=== PATIENT | male | born 1950 | race Caucasian/White ===

== ENCOUNTER 2016-12-09 16:20 | Emergency (ER) | payer BC ==
[2016-12-09 16:30] VITALS: BP 113/75; PULSE 58; RESP 15; TEMP 97.7; O2SAT 94
[2016-12-09] MEDS ORDERED: TDAP ADULT 0.5 ML INJ (BOOSTRIX) IM ONE (17:35)
--- NOTE | 2016-12-09 17:37 | UCPHY ---
H & P Patient Type: New Chief Complaint Nursing Narrative: laceration to r wrist while working, cut on thread grinder. dsg intact. no bleeding at present Time Seen by Provider: 12/09/16 17:29 HPI/ROS: Chief complaint: Right wrist laceration HPI: 66-year-old male was grinding steel at work when he got hit the ground caught and balanced. Striking his right arm. He sustained a laceration over his right radial wrist with an abrasion approximately. Did bleed quite profusely initially but has since stopped. Does not recall his last tetanus. Is otherwise without complaint. ROS: 10 point Review of Systems is negative except as noted in the HPI. Past medical history: None Medications: None Allergies: None Physical exam: General: Awake, alert, no acute distress Right arm: He has got a 1 cm deep laceration over his right lateral wrist. No active bleeding. He also has a superficial abrasions proximal to this with no active bleeding. There is no bony tenderness. Full range of motion without pain. Sensations intact in the radial, median, ulnar nerve distribution. - Medical/Surgical History Other PMH: denies - Family History Significant Family History: No pertinent family hx - Social History Smoking Status: Never smoked Constitutional: Initial Vital Signs Temperature (C) 36.5 C 12/09/16 16:28 Heart Rate 58 L 12/09/16 16:28 Respiratory Rate 15 12/09/16 16:28 Blood Pressure 113/75 12/09/16 16:28 O2 Sat (%) 94 12/09/16 16:28 O2 Delivery Mode Room Air Allergies/Adverse Reactions: No Known Allergies Allergy (Unverified 12/09/16 16:27) Home Medications: Medication Instructions Recorded Aspirin 81mg (*) 12/09/16 Lipitor 12/09/16 Medical Decision Making Procedures: Procedure: Laceration repair. Verbal consent was obtained from the patient. The 1 cm laceration on the right wrist was anesthetized in the usual fashion. The wound was irrigated, draped and explored to its base with a gloved finger. There were no deep structures involved. No tendon injury was identified. The wound was repaired with 2, 4-0 Ethilon simple interrupted sutures. The wound repair was uncomplicated. The procedure was performed by myself. Departure - Departure Disposition: Home, Routine, Self-Care Clinical Impression: Laceration, Abrasion Condition: Good Instructions: Diphtheria/Acellular Pertussis/Tetanus Booster Vaccine (By injection), Care For Your Stitches (ED), Laceration (ED), Abrasion (ED) Additional Instructions: Sutures need to be removed in 10 days. Return to Urgent Care for increasing redness, discharge, bleeding, fevers, chills, streaking of urine, or any other concerns. Follow up with workman's Comp for suture removal. Referrals: EVELYN RENDON [Primary Care Provider] - As per Instructions Work Comp Referral [facility] [place] [facility] [place] - As per Instructions - PQRS PQRS Measurement: NA
== END 2016-12-09 18:09 | disposition home or self-care (01) ==
LOC: CED 17:35
PROC: 0HQDXZZ Repair Right Lower Arm Skin, External Approach (ICD-10-PCS; principal; 2016-12-09)
DX: S61.511A Laceration without foreign body of right wrist, initial encounter (principal); S60.811A Abrasion of right wrist, initial encounter; Y99.0 Civilian activity done for income or pay; W31.1XXA Contact with metalworking machines, initial encounter; Z23 Encounter for immunization
CPT/HCPCS: 12001-PO; 99203-PO; G0463-PO